=== PATIENT | male | born 1980 | race Two or more races ===

== ENCOUNTER 2024-09-19 14:46 | Emergency (ER) | payer SELFPAY ==
[2024-09-19 15:40] LABS: HEMATOCRIT 38.3 % (42.0-52.0); HEMOGLOBIN 13.5 gm/dl (14.0-18.0); MEAN CORPUSCULAR HEMOGLOBIN 36.2 pg (28.0-32.0); MEAN CORPUSCULAR HGB CONC 35.2 g/dl (32.0-36.0); MEAN CORPUSCULAR VOLUME 102.7 fl (83.0-99.0); MEAN PLATELET VOLUME 10.6 fl (9.4-12.4); PLATELET COUNT,PLT 66 K/mm3 (150-400); RED BLOOD CELL COUNT 3.73 M/mm3 (4.52-5.90); WHITE BLOOD CELL COUNT,WBC 3.52 K/mm3 (3.9-11.3)
[2024-09-19] MEDS: Sodium Chloride 0.9% 1,000 ML IV STA (15:41)
[2024-09-19] MEDS: Sodium Chloride 0.9% 10 ML Syringe FLUSH PRN (15:42)
[2024-09-19] MEDS: Ondansetron 4 MG/2 ML SDV IVPUSH ONE (15:42)
[2024-09-19] MEDS: LORazepam 2 MG/ML SDV IVPUSH ONE ×2 (15:42→16:40)
[2024-09-19 16:11] LABS: ALBUMIN 3.6 g/dl (3.4-5.0); ANION GAP 12.7 (5-15); BILIRUBIN TOTAL 1.5 mg/dL (0.2-1.0); BUN/CREATININE RATIO 7.5 (14-18); CALCIUM 8.3 mg/dL (8.5-10.1); CREATININE 0.8 mg/dL (0.7-1.3); EST CRCL DRUG DOSING (CG) 129.42 mL/min; ETHANOL BLOOD MEDICAL 0.03 gm% (0.00); POTASSIUM,K 3.7 mEq/L (3.5-5.1); PROTEIN TOTAL,TP 7.2 g/dl (6.4-8.2); TSH 4.041 uIU/mL (0.358-3.74)
[2024-09-19 16:27] LABS: BARBITURATE SCREEN,URINE NEGATIVE (CUTOFF=200); BENZODIAZEPINES SCREEN,URINE NEGATIVE (CUTOFF=150); BUPRENORPHINE SCREEN,URINE NEGATIVE (CUTOFF=10); METHADONE SCREEN, URINE NEGATIVE (CUT0FF=200); METHAMPHETAMINES SCREEN, URINE NEGATIVE (CUTOFF=500); OXYCODONE SCREEN,URINE NEGATIVE (CUT0FF=100); THC SCREEN,URINE 20 NG/ML NEGATIVE (CUTOFF=50)
[2024-09-19 17:02] LABS: BAND PERCENT MAN 0 % (0-10); BASOPHILS PERCENT MAN 0 (0.2-1.2); EOSINOPHILS PERCENT MAN 0 % (0.8-7.0); LYMPHOCYTES % ATYPICAL MANUAL 0 %; LYMPHOCYTES PERCENT MAN 25 % (20-40); MONOCYTES PERCENT MAN 3 % (2-10)
[2024-09-19 17:04] LABS: PLATELET COUNT ESTIMATE DECREASED; STOMATOCYTES 1+ SLIGHT
[2024-09-19] MEDS ORDERED: chlordiazePOXIDE 25 MG Cap PO ONE (17:14)
[2024-09-19 17:18] LABS: AMPHETAMINES SCREEN, URINE NEGATIVE (CUTOFF=500)
== END 2024-09-19 18:50 | disposition home or self-care (01) ==
LOC: JD.ED 14:46
DX: F10.930 Alcohol use, unspecified with withdrawal, uncomplicated (principal); I10 Essential (primary) hypertension; F17.200 Nicotine dependence, unspecified, uncomplicated; Z79.899 Other long term (current) drug therapy; Z86.16 Personal history of COVID-19
CPT/HCPCS: 36415; 80053; 80143; 80179; 80306; 80307; 83690; 84443; 85007; 85027; 93005; 96374; 96375; 96376; 99285; J2060; J2405; J7030; 99283